=== PATIENT | female | born 1985 | race Caucasian/White ===

== ENCOUNTER 2023-05-16 08:15 | Outpatient (CLI) | payer MEDICARE, MEDICAID, SELFPAY ==
--- NOTE | ~2023-05-16 | US_ITS ---
EXAMINATION: US soft tissue head and neck DATE: 05/16/2023 08:54 INDICATION: Right neck mass. TECHNIQUE: Multiple grayscale and Doppler ultrasound images of the neck were obtained. COMPARISON: CT cervical spine 05/23/2018 FINDINGS: There is no abnormal mass in the patient's area of concern in right neck and chest. IMPRESSION: 1. No abnormal mass in the patient's area of concern in right neck and chest. Reviewed, dictated and finalized at location A.
--- NOTE | ~2023-05-16 | MM_ITS ---
EXAMINATION: MM diagnostic kaleb BI w deondre HISTORY: Midsternal pain radiating to left nipple TECHNIQUE: Technologist notes that positioning was difficult due to patient kyphosis. ML, MLO and CC 3-D tomosynthesis images of both breasts were performed and synthetic 2-D images were generated. CAD analysis was submitted and interpreted. COMPARISON: None BREAST PARENCHYMAL COMPOSITION: There are scattered areas of fibroglandular density. FINDINGS: No suspicious mass or architectural distortion, malignant calcification, skin thickening or retraction is detected. IMPRESSION: 1. No mammographic evidence of malignancy 2. Routine annual mammographic screening is recommended beginning at age 40 BI-RADS Category 1: Negative Reviewed, dictated and finalized at location A.
--- NOTE | ~2023-05-16 | US_ITS ---
EXAMINATION: US soft tissue abdomen DATE: 05/16/2023 08:54 INDICATION: Periumbilical lump. TECHNIQUE: Multiple grayscale and Doppler ultrasound images of the abdomen were obtained. COMPARISON: None FINDINGS: There is an ill-defined periumbilical mass that is indeterminate for a hernia. IMPRESSION: 1. Ill-defined periumbilical mass that is indeterminate for a hernia. Consider CT. Reviewed, dictated and finalized at location A.
== END 2023-05-16 08:16 | disposition home or self-care (01) ==
LOC: CHSIMG 08:19
PROVIDERS: PCP Family Medicine; Visit Provider Family Medicine
DX: N64.4 Mastodynia (principal); R19.09 Other intra-abdominal and pelvic swelling, mass and lump; R22.1 Localized swelling, mass and lump, neck
CPT/HCPCS: 76536; 76705; 77062; 77066; G0279

== ENCOUNTER 2025-05-24 11:08 | Emergency (ER) | payer MEDICARE, MEDICAID, SELFPAY ==
[2025-05-24] VITALS (21 sets, daily range): BP systolic 94–138; BP diastolic 51–84; PULSE 99–104; RESP 14–16; TEMP 36.4; O2SAT 93–100
--- NOTE | ~2025-05-24 | XR_ITS ---
EXAMINATION: XR chest 2V DATE: 05/24/2025 12:38 INDICATION: Hypertension TECHNIQUE: PA and lateral views of the chest were obtained. COMPARISON: None FINDINGS: The lungs are clear with no focal airspace opacities, pulmonary edema, pleural effusion or pneumothorax. The cardiomediastinal silhouette is normal. Mild lower thoracic kyphosis with chronic appearing mild anterior wedging of a few lower thoracic vertebral bodies. Moderate thoracic and upper lumbar spondylosis. Partially visualized bilateral vertical césar and pedicle screw fixation at the cervicothoracic junction. There is a retained pedicle screw fixation on the left at T2. IMPRESSION: 1. No acute cardiopulmonary disease. Reviewed, dictated and finalized at location A.
--- NOTE | ~2025-05-24 | CT_ITS ---
EXAMINATION: CT cervical spine wo con DATE: 05/24/2025 12:37 INDICATION: Fall TECHNIQUE: Computed tomography (CT) of the cervical spine was performed without intravenous contrast. The dose-length product was 457.39 mGy-cm. COMPARISON: 05/23/2018 FINDINGS: Evaluation of the spinal canal contents is limited due to CT technique and artifact from the hardware in the cervical spine. There is posterior cervical hardware in the cervical spine without convincing CT evidence for loosening. Straightening of the normal cervical lordosis. Anterior bridging osteophytes noted throughout the cervical spine. Predental space is within normal limits. No prevertebral soft tissue swelling. Lateral dental intervals are within normal limits. IMPRESSION: 1. Straightening of the normal cervical lordosis. 2. No compression fracture in the cervical spine. If symptoms persist or worsen, consider an MRI of the cervical spine for further assessment. Reviewed, dictated and finalized at location Q. IMPRESSION: 1. Straightening of the normal cervical lordosis. 2. No compression fracture in the cervical spine. If symptoms persist or worsen, consider an MRI of the cervical spine for furthe r assessment.
--- NOTE | ~2025-05-24 | CT_ITS ---
EXAMINATION: CT brain wo con COMPARISON: None HISTORY: fall TECHNIQUE: Axial images were obtained through the brain without IV contrast. CT scan performed using dose optimization techniques including the following automated exposure control; adjustment of mA and/or kV; use of iterative reconstruction technique. Automatic exposure control was used to reduce radiation dose. Permanent radiation dose record is archived to PACS. FINDINGS: No acute infarct or parenchymal hemorrhage. No abnormal mass or mass effect. No midline shift. No extra-axial fluid collections. No hydrocephalus. . Mastoid air cells unremarkable. Sinuses and orbits unremarkable. No acute fracture. No significant facial or scalp soft tissue swelling evident. No radiopaque foreign body is seen. Impression: 1.No acute intracranial abnormality. Reviewed, dictated and finalized at location A. Impression: 1.No acute intracranial abnormality.
--- NOTE | ~2025-05-24 | XR_ITS ---
EXAMINATION: XR knee LT 3V DATE: 05/24/2025 12:38 INDICATION: Left knee pain post fall TECHNIQUE: Anteroposterior, oblique and crosstable lateral views of the left knee were obtained COMPARISON: None. FINDINGS: Alignment is normal. No fracture. No joint effusion/layering lipohemarthrosis. Mild soft tissue swelling anterior to the inferior pole of the patella. Tiny enthesopathic ossicle along the superficial margin of the distal quadriceps tendon.. IMPRESSION: 1. Mild prepatellar soft tissue swelling. No left knee joint effusion or acute osseous abnormality. Reviewed, dictated and finalized at location A.
--- NOTE | 2025-05-24 11:19 | ED.FALL ---
HPI - Fall General Chief Complaint: Fall Stated Complaint: fall Source: patient Mode of arrival: EMS Limitations: no limitations History of Present Illness HPI Narrative: 39 years old white female slipped on a wet ground, landed on the left knee, felt her neck popped, denies head injury or any other injuries. Patient had breakfast, did not take her insulin prior to arrival. Patient denies any fever, chills, nausea, vomiting, chest pain, shortness of breath or headache. History of neck surgery and is concerned about possible injury. Related Data Home Medications ?Medication ?Instructions ?Recorded ?Confirmed ?Last Taken ?Type bupropion HCl 150 mg 24 hr tablet, 150 mg PO DAILY 05/24/25 05/24/25 05/24/25 History extended release evolocumab 140 mg/mL subcutaneous 140 mg subcut MONTHLY 05/24/25 05/24/25 Unknown History pen injector (Flavio Epstein) glipizide 10 mg tablet, extended 10 mg PO DAILY 05/24/25 05/24/25 Unknown History release 24 hr hydrocodone 7.5 mg-acetaminophen 1 tablet PO Q12H 05/24/25 05/24/25 Unknown History 325 mg tablet insulin glargine-yfgn 100 unit/mL 10 unit subcut QPM 05/24/25 05/24/25 Unknown History (3 mL) subcutaneous pen insulin regular hum U-500 conc 500 25 unit subcut QPM 05/24/25 05/24/25 Unknown History unit/mL(3 mL) subcut pen (Humulin R U-500 (Conc) Insulin Kwikpen) levothyroxine 300 mcg tablet 300 mcg PO DAILY 05/24/25 05/24/25 Unknown History Allergies Allergy/AdvReac Type Severity Reaction Status Date / Time No Known Allergies Allergy Verified 05/24/25 11:18 Review of Systems Review of Systems: All systems reviewed & are unremarkable except as noted in HPI and below Exam Narrative: General appearance: Well-developed, well-nourished Skin: Normal color Head: Normocephalic, nontraumatic Eyes: Clear conjunctiva ENT: Oropharynx normal, ears normal, nose normal Neck: slight diffuse neck tenderness, no bruises, no swelling, no rash Chest and respiratory: Airway patent, no respiratory distress, no accessory muscle use Heart: Regular rate/rhythm Abdomen: Soft, nontender, no organomegaly, quiet bowel sounds Vascular: Normal peripheral pulses, normal capillary refill. Musculoskeletal: left knee exam showing slight abrasion anteriorly otherwise no other injuries, good range of motion Neurologic: Alert and oriented ?3, CHILD AND FAMILY THERAPIST is normal as tested, no gross motor deficit Course Vital Signs Vital signs: Vital Signs Temperature 36.4 C L 05/24/25 11:08 Pulse Rate 99 05/24/25 11:08 Respiratory Rate 16 05/24/25 11:08 Blood Pressure 94/57 L 05/24/25 11:08 Pulse Oximetry 94 05/24/25 11:08 Oxygen Delivery Room Air 05/24/25 11:08 Temperature 36.4 C L 05/24/25 11:08 Pulse Rate 102 H 05/24/25 12:01 Respiratory Rate 14 05/24/25 11:41 Blood Pressure 95/65 L 05/24/25 12:01 Pulse Oximetry 94 05/24/25 12:01 Oxygen Delivery Room Air 05/24/25 11:08 MDM - Fall MDM Narrative Medical decision making narrative: patient came to the ED after a fall Vital signs showing blood pressure 94/57 otherwise within normal limit, blood glucose on arrival the 301 Physical examination showing patient is slightly diaphoretic, left knee abrasion anteriorly, slight diffuse neck tenderness,otherwise no significant abnormality Differential diagnosis include orthostatic hypotension, DKA, urinary tract infection, electrolyte imbalance, dehydration Blood workup today includes CBC, CMP, troponin, lactic acid, blood culture showed blood glucose 302 lactic acid 2.3 slight elevation of liver enzymes His CT showed no acute abnormality Chest x-ray without contrast showed no acute abnormality CT cervical spine showed no acute abnormality, left knee x-ray showed no acute abnormality Differential Diagnosis Differential diagnosis: Likely other (As above) Medical Records Attestation: I reviewed the patient's medical records. Lab Data Attestation: I reviewed the patient's lab results. 05/24/25 12:01 05/24/25 12:01 Labs: Lab Results 05/24/25 05/24/25 05/24/25 Range/Units 11:17 12:01 13:45 WBC 9.1 (4.8-10.8) K/mm3 RBC 4.50 (4.20-5.40) M/mm3 Hgb 13.0 (12.0-15.0) g/dL Hct 38.7 (35.0-49.0) % MCV 86.0 (78.0-102.0) fL MCH 28.9 (27.0-31.0) pg MCHC 33.6 (32-36) g/dL RDW 12.4 (11.6-14.4) % Plt Count 219 (150-420) K/mm3 MPV 10.4 (9.2-11.8) fl Immature Gran % (Auto) 0.4 H (0.0-0.0) % Neut % (Auto) 85.7 H (50.0-70.0) % Lymph % (Auto) 9.0 L (18.0-42.0) % Ocean % (Auto) 4.2 (2.0-11.0) % Eos % (Auto) 0.4 L (1.0-6.0) % Baso % (Auto) 0.3 (0.0-1.0) % Lymph # (Auto) 0.81 L (1.10-4.50) K/mm3 Ocean # (Auto) 0.38 (0.10-0.90) K/mm3 Eos # (Auto) 0.04 (0.02-0.50) K/mm3 Baso # (Auto) 0.03 (0.00-0.10) K/mm3 Abs Immat Gran (auto) 0.04 H (0.00-0.00) K/mm3 Absolute Neuts (auto) 7.75 H (1.70-7.20) K/mm3 Absolute Nucleated RBC 0.00 (0.00-0.00) K/mm3 Nucleated RBC % 0.0 (0-0.0) % PT 11.8 (9.50-12.1) Seconds INR 1.1 APTT 21.4 L (23.9-30.70) Sec Sodium 142 (137-145) mmol/L Potassium 4.3 (3.4-5.0) mmol/L Chloride 104 (98-107) mmol/L Carbon Dioxide 26 (22-30) mmol/L Anion Gap 12 (4-12) mmol/L BUN 16 (7-17) mg/dL Creatinine 0.84 (0.7-1.0) mg/dL Estim Creat Clear Calc 95 ml/min Estimated GFR > 60 (59 - ) Glucose 302 H (65-110) mg/dL POC Capillary Glucose 301 H (65-105) mg/dl Calculated Osmolality 306 H (285-295) mOsm/kg Lactic Acid 2.3 H (0.4-2.0) mmol/L Calcium 10.0 (8.4-10.2) mg/dL Total Bilirubin 1.4 H (0.2-1.3) mg/dL AST 82 H (14-36) U/L ALT 95 H (6-35) U/L Alkaline Phosphatase 64 (38-126) U/L Troponin I < 0.012 (0.000-0.034) ng/mL C-Reactive Protein < 0.5 (<1.0) mg/dL Total Protein 7.7 (6.3-8.2) g/dL Albumin 4.3 (3.5-5.1) g/dL Urine Color Pending Urine Appearance Pending Urine pH Pending Ur Specific [place] Pending Urine Protein Pending Urine Glucose (UA) Pending Urine Ketones Pending Ur Blood (Man) Pending Urine Nitrate Pending Urine Bilirubin Pending Urine Urobilinogen Pending Leukocyte Esterase Rfl Pending ABG Data ABG results: 05/24/25 12:01 VBG pH 7.38 VBG pCO2 44.2 VBG pO2 32.5 L VBG HCO3 25.7 O2 Delivery Device Room air O2 Liters/Min 0.0 Imaging Data Radiologist's impression: Impressions Cervical Spine CT 05/24/25 12:38 IMPRESSION: 1. Straightening of the normal cervical lordosis. 2. No compression fracture in the cervical spine. If symptoms persist or worsen, consider an MRI of the cervical spine for further assessment. Knee X-Ray 05/24/25 12:40 IMPRESSION: 1. Mild prepatellar soft tissue swelling. No left knee joint effusion or acute osseous abnormality. Chest X-Ray 05/24/25 12:41 IMPRESSION: 1. No acute cardiopulmonary disease. Head CT 05/24/25 12:47 Impression: 1.No acute intracranial abnormality. Discharge Plan Discharge Clinical Impression: Fall, Knee pain, left, Neck pain Patient Disposition: Home Condition: Stable Instructions: Fall Prevention for Older Adults (ED), Knee Pain (ED), Neck Pain (ED) Additional Instructions: Return if symptoms are worsening , call your family physician for appointment, take Tylenol as as needed for aches and pain, continue home medications. Patient Language: Grenadian Prescriptions: No Action levothyroxine 300 mcg tablet 300 mcg PO DAILY glipizide 10 mg tablet extended release 24hr 10 mg PO DAILY hydrocodone-acetaminophen 7.5-325 mg tablet 1 tablet PO Q12H bupropion HCl 150 mg tablet extended release 24 hr 150 mg PO DAILY Repatha SureClick 140 mg/mL pen injector 140 mg SUBCUT MONTHLY Humulin R U-500 (Conc) Kwikpen 500 unit/mL (3 mL) insulin pen 25 unit SUBCUT QPM insulin glargine-yfgn 100 unit/mL (3 mL) insulin pen 10 unit SUBCUT QPM Follow-up/Referrals: Agnieszka,Belinda Brooks MD [Primary Care Provider, Unknown]
--- NOTE | 2025-05-24 11:40 | ECG_ITS ---
Test Date: 2025-05-24 12:05:26 Measurements Intervals [place] Rate: 94 P: 19 ND: 148 QRS: -29 QRSD: 100 T: 14 QT: 372 QTc: 466 Interpretive Statements SINUS RHYTHM POOR R-WAVE PROGRESSION BORDERLINE LEFT AXIS DEVIATION [QRS AXIS < -20] BORDERLINE ECG No previous ECG available for comparison Electronically Signed On 05-24-2025 12:46:49 CDT by Torsten Rosario M.D.
--- OUTSIDE RECORDS SUMMARY | 2025-05-24 11:58 | XMS_ITS | Clinical Summary ---
Author Organization [facility] Address [address] [place] [address] Care Team Providers Care Men'S Leather Dress Belt Maker Name Role Phone Belinda Aaron MD Primary Care Provider [phone] Source Comments [facility],non-owned Affiliates and Associated Physician Practices is amultiple site organization consisting of ambulatory clinics and hospital sitesin [place], [place], [place] and [place]. This disclosure is being madepursuant to the Care Everywhere program and may not contain all information available regarding this patient. Last updated 18.[facility] [employer] Allergies Active Allergy Reactions Criticality Noted Date Comments Hydromorphone Psychiatric Medium 02/09/2016 Anxiety Prochlorperazine Psychiatric Medium 02/09/2016 Anxiety Medications * Be aware that medications may not be up to date on this document. Alwaysverify current medications with the patient. levothyroxine (Synthroid) 300 MCG tablet 03/23/2025 Active levothyroxine (Synthroid) 50 MCG tablet 03/01/2025 Active atorvastatin (Lipitor) 80 MG tablet 03/14/2025 Active vitamin D3 (Cholecalciferol ) 75 MCG (3000 UT) tablet Take 1 (one) tablet by mouth once daily as needed Active cyclobenzaprine (Flexeril) 5 MG tablet 10/12/2024 Active HYDROcodone-acet aminophen ([place]) 7.5-325 MG tablet 04/18/2025 Active insulin glargine-yfgn (Semglee) pen 11/10/2024 Activ e HumuLIN R U-500 KWIKPEN 500 UNIT/ML SOPN pen 03/14/2025 Ac tive lisinopril (Prinivil; Zestril) 40 MG tablet 03/14/2025 Active Active Problems Problem Noted Date Diagnosed Date NAFLD (nonalcoholic fatty liver disease) 019 Encounters Date Type Department Care Team Description 04/22/2025 2:00 PM CDT Office Visit [facility] - Neurosurgery [address], [facility] [place] [address] Raymundo Prajapati MD IIH (idiopathic intracranial hypertension) (Primary Dx); Presence of lumboperitoneal shunt 04/22/2025 Travel 04/19/2025 Travel from Last 3 Months Social History Tobacco Use Types Packs/Day Years Used Date Smoking Tobacco: Never Assessed Tobacco Cessation:Counseling Given: No Comments Unknown Sex and Gender Information Value Date Recorded Sex Assigned at Not on file Legal Sex Female 11:08 AM CDT Gender Identity Not on file Sexual Orientation Not on file Last Filed Vital Signs Vital Sign Reading Time Taken Comments Blood Pressure 160/116 04/22/2025 1:20 PM CDT Pulse 73 04/22/2025 1:20 PM CDT Temperature 32.5 C (90.5 F) 04/22/2025 1:20 PM CDT Respiratory Rate 18 10/16/2017 2:36 PM RISK ENGINEER Oxygen Saturation 97% 04/22/2025 1:20 PM CDT Inhaled Oxygen Concentration - - Weight 96.6 kg (213 lb) 04/22/2025 1:20 PM CDT Height 170.2 cm (5' 7) 04/22/2025 1:20 PM CDT Body Mass Index 33.36 04/22/2025 1:20 PM CDT Plan of Treatment Health Maintenance Due Date Last Done Comments MEDICARE AWV 12 MONTHS 1987 HIV SCREENING 2002 HEPATITIS C SCREENING 07/10/2005 DTAP/TDAP/TD VACCINES (1 - Tdap) 2006 HEPATITIS B VACCINE (1 of 3 - 19+ 3-dose series) 2006 HPV VACCINE (1 - 3-dose SCDM series) 2014 DEPRESSION SCREENING 09/01/2024 COVID-19 VACCINE (3 - 2024-2 6 season) 2025 02/06/2021, 01/16/2021 INFLUENZA VACCINE (#1) 2025 11/09/2018 PAP SMEAR 03/11/2027 03/11/2024, 03/11/2024 ZOSTER VACCINE (1 of 2) 2037 HIB VACCINE Aged Out No longer eligi ble based on patient's age to complete this topic MENINGOCOCCAL (Group B) VACCINE SHARED DECISION-MAKING Aged Out No longer eligible based on patient's age to complete this topic MENINGOCOCCAL GROUPS A/C/Y/W VACCINE Aged Out No longer eligible b ased on patient's age to complete this topic PNEUMOCOCCAL VACCINE Aged Out No long er eligible based on patient's age to complete this topic Insurance MEDICAID - [place] MEDICARE Care Teams Men'S Leather Dress Belt Maker Relationship Specialty Start Date End Date Belinda Aaron MD [address] [place] [phone] PCP - General Family Medicine 12/22/24
--- NOTE | 2025-05-24 12:05 | PC.NURSE ---
Pt to CT scanner with radiology transport.
[2025-05-24 12:07] LABS: HCO3 VBG 25.7 mEq/l (24.0-30.0); Hematocrit 38.7 % (35.0-49.0); Hemoglobin 13.0 g/dL (12.0-15.0); Immature Granulocyte Percent A 0.4 % (0.0-0.0); Lymphocytes Absolute Auto 0.81 K/mm3 (1.10-4.50); Mean Corpuscular HGB Conc 33.6 g/dL (32-36); Mean Corpuscular Hemoglobin 28.9 pg (27.0-31.0); Mean Corpuscular Volume 86.0 fL (78.0-102.0); Nucleated Red Blood Cells Absolute Auto 0.00 K/mm3 (0.00-0.00); Nucleated Red Blood Cells Perc 0.0 % (0-0.0); PCO2 VBG 44.2 mmHg (42.0-48.0); PO2 VBG 32.5 mmHg (35.0-45.0); Platelet Count Result 219 K/mm3 (150-420); Red Blood Count 4.50 M/mm3 (4.20-5.40); White Blood Count 9.1 K/mm3 (4.8-10.8); pH VBG 7.38 (7.33-7.43)
[2025-05-24 12:08] LABS: Liters per Minute 0.0 LPM
[2025-05-24 12:19] LABS: INR 1.1; Partial Thromboplastin Time 21.4 Sec (23.9-30.70); Prothrombin Time 11.8 Seconds (9.50-12.1)
--- OUTSIDE RECORDS SUMMARY | 2025-05-24 12:19 | XMS_ITS | Clinical Summary ---
Author Organization [facility] Address [address] [place] [address] Care Team Providers Care Fur Repairer Name Role Phone Belinda Aaron MD Primary Care Provider [phone]- [phone] Source Comments [facility],non-owned Affiliates and Associated Physician Practices is amultiple site organization consisting of ambulatory clinics and hospital sitesin [place], [place], [place] and [place]. This disclosure is being madepursuant to the Care Everywhere program and may not contain all information available regarding this patient. Last updated 18.[facility] [employer] Allergies Active Allergy Reactions Criticality Noted Date [...] 5 MG tablet 10/12/2024 Active HYDROcodone-acet aminophen ([place]) 7.5-325 MG tablet 04/18/2025 Active insulin glargine-yfgn (Semglee) pen 11/10/2024 Activ e HumuLIN R U-500 KWIKPEN 500 UNIT/ML SOPN pen 03/14/2025 Ac tive lisinopril (Prinivil; Zestril) 40 MG tablet 03/14/2025 Active Active Problems Problem Noted Date Diagnosed Date NAFLD (nonalcoholic fatty liver disease) 019 Encounters Date Type Department Care Team Description 04/22/2025 2:00 PM CDT Office Visit [facility] - Neurosurgery [address] [facility], [facility] [place] [address] Raymundo Prajapati MD IIH (idiopathic intracranial hypertension) [...] Respiratory Rate 18 10/16/2017 2:36 PM RISK REDUCTION COUNSELOR Oxygen Saturation 97% 04/22/2025 1:20 PM CDT [...] Insurance MEDICAID - [place] MEDICARE Care Teams Fur Repairer Relationship Specialty Start Date End Date Belinda Aaron MD [address] [place] [phone] PCP - General Family Medicine 12/22/24
[2025-05-24 12:20] LABS: Alanine Aminotransferase 95 U/L (6-35); Albumin Level 4.3 g/dL (3.5-5.1); Alkaline Phosphatase 64 U/L (38-126); Anion Gap 12 mmol/L (4-12); Aspartate Amino Transferase 82 U/L (14-36); Bilirubin,Total 1.4 mg/dL (0.2-1.3); Blood Urea Nitrogen 16 mg/dL (7-17); CRP < 0.5 mg/dL (<1.0); Calcium 10.0 mg/dL (8.4-10.2); Carbon Dioxide 26 mmol/L (22-30); Chloride 104 mmol/L (98-107); Estimated CRCL calculation 95 ml/min; Estimated Glomerular Filt Rate > 60; Glucose 302 mg/dL (65-110); Osmolality Calculated 306 mOsm/kg (285-295); Potassium 4.3 mmol/L (3.4-5.0); Sodium 142 mmol/L (137-145); Total Protein 7.7 g/dL (6.3-8.2)
[2025-05-24 12:29] LABS: Troponin I < 0.012 ng/mL (0.000-0.034)
[2025-05-24] MEDS: SODIUM CHLORIDE 0.9% IV 1,000 ML 999 ML IV CONT ×2 (12:43)
[2025-05-24 13:53] LABS: Add Urine Microscopic? YES; Appearance Urine Clear (Clear); Glucose Urine UA Trace (Negative); Leukocyte Esterase Ur Trace LEU/UL (Negative); Nitrate Urine Negative (Negative); Specific Grav Ur 1.020 (1.010-1.020)
--- NOTE | 2025-05-26 13:46 | PC.NURSE ---
preliminary bllod cultures x2 reviewed. no growth detected at this time
--- NOTE | 2025-05-27 12:33 | PC.NURSE ---
PRELIMINARY BLOOD CULTURE NO GROWTH IN 24 HOURS
--- NOTE | 2025-05-28 12:27 | PC.NURSE ---
PRELIMINARY BLOOD CULTURE NO GROWTH IN 48 HOURS
--- NOTE | 2025-05-30 12:50 | PC.NURSE ---
preliminary blood cultures x2 reviewed. no growth in 48 hours.
--- NOTE | 2025-05-31 14:00 | PC.NURSE ---
final blood cultures x2 reviewed. no growth in 5 days
== END 2025-05-24 14:47 | disposition home or self-care (01) ==
PROVIDERS: Emergency Provider Emergency Medicine; PCP Family Medicine
DX: M25.562 Pain in left knee (principal); M54.2 Cervicalgia; Z79.891 Long term (current) use of opiate analgesic; Z79.899 Other long term (current) drug therapy; Z79.4 Long term (current) use of insulin; W01.0XXA Fall on same level from slipping, tripping and stumbling without subsequent striking against object, initial encounter
CPT/HCPCS: 36415; 70450; 71046; 72125; 73562; 80053; 81001; 82803; 82948; 83605; 84484; 85025; 85610; 85730; 86140; 87040; 93005; 96360; 99284; J7030